=== PATIENT | male | born 1960 | race Caucasian/White ===

== ENCOUNTER → 2016-12-11 | Outpatient (CLI) | payer OTHER ==
[~2016-12-11] MED LIST: ASPI81TA81; CLOP75TA PO; DILT90TA PO; GABA300C5 PO; GEMF600T PO; ISOS60TA PO; LIPI80TA PO; MULT-207 PO; NITR50VP; RANI150T PO
[2016-12-11 08:43] LABS: AUTOMATED NEUTROPHIL # 4.3 TH/MM3 (1.8-7.7); BASOPHIL # 0.1 TH/MM3 (0-0.2); BASOPHIL % 1.3 % (0.0-2.0); EOSINOPHIL # 0.4 TH/MM3 (0-0.4); EOSINOPHIL % 4.3 % (0.0-4.0); HEMATOCRIT 46.2 % (39.0-51.0); HEMO FLAGS DIFF FINAL; LYMPHOCYTE # 2.4 TH/MM3 (1.0-4.8); MEAN CELL VOLUME 84.2 FL (80.0-100.0); MEAN CORPUSCULAR HEMOGLOBIN 27.5 PG (27.0-34.0); MEAN CORPUSCULAR HGB CONC 32.7 % (32.0-36.0); MONO % 14.7 % (0.0-8.0); NEUT % 51.7 % (16.0-70.0); PLATELET COUNT 247 TH/MM3 (150-450); RED BLOOD COUNT 5.48 MIL/MM3 (4.50-5.90); WHITE BLOOD COUNT 8.4 TH/MM3 (4.0-11.0)
[2016-12-11 09:20] LABS: ALKALINE PHOSPHATASE 97 U/L (45-117); ALT (GPT) 47 U/L (12-78); ANION GAP 9 MEQ/L (5-15); AST (GOT) 34 U/L (15-37); BLOOD UREA NITROGEN 18 MG/DL (7-18); CHLORIDE 105 MEQ/L (98-107); GLOMERULAR FILTRATION RATE 62 ML/MIN (>89); GLUCOSE,FASTING 85 MG/DL (74-99); LDL CHOLESTEROL 78 MG/DL (0-99); POTASSIUM 4.2 MEQ/L (3.5-5.1); SODIUM (NA) 143 MEQ/L (136-145); TOTAL BILIRUBIN ADULT 0.6 MG/DL (0.2-1.0)
[2016-12-11 14:01] LABS: HEMOGLOBIN A1a 0.9 %; HEMOGLOBIN A1b 1.7 %; HEMOGLOBIN P3 3.9 %
== END ==
LOC: CLAB 08:05
PROVIDERS: ATTEND Family Medicine
DX: I10 Essential (primary) hypertension (principal); E78.1 Pure hyperglyceridemia; E16.2 Hypoglycemia, unspecified; M79.661 Pain in right lower leg
CPT/HCPCS: 36415; 80053; 80061; 83036; 84443; 84681; 85025

== ENCOUNTER → 2017-01-14 | Outpatient (CLI) | payer OTHER ==
[~2017-01-14] MED LIST changes: +IOHEXOL 350 MG/ML 10 ML VIAL (for RAD DIAG) IV ONE
--- NOTE | 2017-01-14 15:13 | RADRPT ---
EXAM DATE/TIME: 01/14/2017 14:36 [place] COMPARISON: No previous studies available for comparison. INDICATIONS : Lower abdominal pain. IV CONTRAST: 95 cc Omnipaque 350 (iohexol) IV ORAL CONTRAST: Prescribed oral contrast ingested. RADIATION DOSE: 16.49 CTDIvol (mGy) MEDICAL HISTORY : Hypertension. Cardiovascular disease Renal calculi. SURGICAL HISTORY : None. ENCOUNTER: Initial ACUITY: 1 month PAIN SCALE: 4/10 LOCATION: Bilateral lower quadrant TECHNIQUE: Volumetric scanning of the abdomen and pelvis was performed. Using automated exposure control and ad justment of the mA and/or kV according to patient size, radiation dose was kept as low as reasonably achievable to obtain optimal diagnostic quality images. FINDINGS: LOWER LUNGS: The visualized lower lungs are clear. LIVER: Homogeneous density without lesion. There is no dilation of the biliary tree. No calcified gallston es. SPLEEN: Normal size without lesion. PANCREAS: Within normal limits. KIDNEYS: Small subcentimeter hypodense lesions in the posterior mid left kidney and posterior mid right kidney which are too small to fully characterize. Kidneys are otherwise symmetrical in size and demonstrate s little enhancement without evidence of hydronephrosis or radiopaque renal calculi. ADRENAL GLANDS: Within normal limits. VASCULAR: There is no aortic aneurysm. BOWEL/MESENTERY: Appendix is not directly visualized. No significant inflammatory stranding or nodes in the pericecal region. The stomach, small bowel, and colon demonstrate no acute abnormality. There is no free intra peritoneal air or fluid. ABDOMINAL WALL: Within normal limits. RETROPERITONEUM: There is no lymphadenopathy. BLADDER: No wall thickening or mass. REPRODUCTIVE: Within normal limits. INGUINAL: Small fat containing left inguinal hernia. MUSCULOSKELETAL: Degenerative spondylosis of the lower lumbar spine most prominently at L5-S1 with vacuum disc phenome non and osteophyte formation. CONCLUSION: 1. Appendix is not directly visualized. No secondary evidence for appendicitis. 2. No definitive findings to explain patient's abdominal pain. 3. Subcentimeter bilateral renal lesions which are too small to fully characterize but statistically reflect cysts. 4. Small fat containing left inguinal hernia. Frandy Whatley MD on January 14, 2017 at 15:01 Board Certified Radiologist. This report was verified electronically.
== END ==
LOC: HRAD 12:54
PROVIDERS: ATTEND Family Medicine
DX: E16.2 Hypoglycemia, unspecified (principal); Z87.19 Personal history of other diseases of the digestive system
CPT/HCPCS: 74177; Q9967